=== PATIENT | male | born 1955 | race Caucasian/White ===

== ENCOUNTER 2017-01-20 14:14 | Emergency (ER) | payer SELFPAY ==
[~2017-01-20] VITALS: Ht 162.6 cm; Wt 64.0 kg
[2017-01-20] MEDS ORDERED: ACETAMINOPHEN 325MG TABLET PO ONE (15:45)
[2017-01-20 17:05] VITALS: BP 140/81
== END 2017-01-20 17:06 | disposition home or self-care (01) ==
LOC: ER 14:33
DX: M25.511 Pain in right shoulder (principal); W19.XXXA Unspecified fall, initial encounter; Y93.89 Activity, other specified; Y92.89 Other specified places as the place of occurrence of the external cause; Y99.8 Other external cause status
CPT/HCPCS: 73030; 73060; 73080; 99284

== ENCOUNTER 2017-12-02 11:08 | Emergency (ER) | payer SELFPAY ==
[~2017-12-02] VITALS: Ht 165.1 cm; Wt 55.0 kg
[2017-12-02 12:06] VITALS: BP 135/74
== END 2017-12-02 13:22 | disposition home or self-care (01) ==
LOC: ER 13:21
DX: S01.112D Laceration without foreign body of left eyelid and periocular area, subsequent encounter (principal); X58.XXXD Exposure to other specified factors, subsequent encounter
CPT/HCPCS: 99281; Z7610

== ENCOUNTER 2018-04-16 16:21 | Emergency (ER) | payer SELFPAY ==
[~2018-04-16] VITALS: Ht 165.1 cm; Wt 73.0 kg
[2018-04-16 16:34] VITALS: BP 131/69
== END 2018-04-16 21:30 | disposition left against medical advice (07) ==
LOC: ER 17:23
DX: Z53.21 Procedure and treatment not carried out due to patient leaving prior to being seen by health care provider (principal)
CPT/HCPCS: 82962